=== PATIENT | male | born 1985 | race African-American/Black ===

== ENCOUNTER 2023-11-24 20:51 | Emergency (ER) | payer MEDICAID ==
[~2023-11-24] VITALS: Ht 170.2 cm; Wt 80.0 kg
[2023-11-24 20:55] VITALS: O2SAT 100
[2023-11-24 21:38] LABS: BASOPHILS % 1.3 % (0.0-2.0); EOSINOPHILS % 3.1 % (0.0-5.0); HEMATOCRIT. 39.7 % (42.0-52.0); HEMOGLOBIN. 13.6 g/dL (14.0-18.0); LYMPHOCYTES % 48.6 % (20.0-50.0); MEAN CORPUSCULAR HEMOGLOBIN 31.8 pg (28.0-32.0); MEAN CORPUSCULAR HGB CONC 34.2 g/dL (31.0-37.0); MEAN CORPUSCULAR VOLUME 92.9 fL (80.0-94.0); MEAN PLATELET VOLUME 8.1 fl (7.4-10.4); MONOCYTES % 8.3 % (2.0-8.0); NEUTROPHILS % 38.7 % (40.0-76.0); PLATELET 236 x1000/uL (130-400); RED BLOOD CELL COUNT 4.27 mill/uL (4.7-6.1); RED CELL DISTRIBUTION WIDTH 13.6 % (11.6-14.6); WHITE BLOOD COUNT 5.9 x1000/uL (4.5-11.0)
[2023-11-24 21:46] LABS: CHLORIDE 106 mEq/L (98-107); SODIUM 137 mEq/L (136-145)
[2023-11-24 21:47] LABS: CALCIUM 10.1 mg/dL (8.7-10.4); CARBON DIOXIDE 27 mEq/L (21-32)
[2023-11-24 21:52] LABS: CREATININE 1.2 mg/dL (0.6-1.3); GLUCOSE 109 mg/dL (70-105); UREA NITROGEN BLOOD 12 mg/dL (9-23)
[2023-11-24 21:53] LABS: TROPONIN I HIGH SENSITIVITY 48 ng/L (3.0-53)
[2023-11-24] MEDS ORDERED: IBUP-2029 MT (22:18)
[2023-11-24] MEDS: SODIUM CHLORIDE 0.9% 1,000 ML IV ONE (22:20)
[2023-11-24] MEDS: METOCLOPRAMIDE HCL 10MG/2ML VIAL IV ONE (22:21)
[2023-11-24] MEDS: KETOROLAC 15MG/ML VIAL IV ONE (22:21)
[2023-11-24 22:57] VITALS: BP 187/113; PULSE 64; RESP 13; TEMP 36.72516; O2SAT 98
== END 2023-11-24 23:08 | disposition home or self-care (01) ==
LOC: ER 20:51
DX: R51.9 Headache, unspecified (principal); I10 Essential (primary) hypertension
CPT/HCPCS: 99285; 96374; 70450; 71045; 96361; 96375; 80048; 85025; 84484; 36415; J1885; J2765; J7030

== ENCOUNTER 2024-07-16 20:42 | Emergency (ER) | payer MEDICAID, OTHER ==
[~2024-07-16] VITALS: Ht 172.7 cm; Wt 96.0 kg
[~2024-07-16 20:42] MED LIST: IBUP-2029 MT
[2024-07-16 21:10] VITALS: BP 137/88; PULSE 78; RESP 16; TEMP 36.7; O2SAT 98
[2024-07-17] MEDS: LIDOCAINE 5% PATCH TOP SCH (01:52)
[2024-07-17] MEDS: KETOROLAC 15MG/ML VIAL IM ONE (01:53)
[2024-07-17] MEDS: KETOROLAC 15MG/ML VIAL IM NR (01:57)
[2024-07-17] MEDS ORDERED: KETO10TA2 MT (04:17)
== END 2024-07-17 04:56 | disposition home or self-care (01) ==
LOC: ER 20:42
DX: M25.511 Pain in right shoulder (principal); M54.50 Low back pain, unspecified; M25.551 Pain in right hip; I10 Essential (primary) hypertension
CPT/HCPCS: 99284; 73502; 72100; 73030; 96372; J1885